=== PATIENT | female | born 1945 | race Caucasian/White ===

== ENCOUNTER 2017-05-15 05:23 | Emergency (ER) | payer OTHER, MEDICARE ==
[~2017-05-15] VITALS: Ht 162.6 cm; Wt 113.0 kg
[2017-05-15 05:38] VITALS: BP 121/78; PULSE 75; RESP 18; TEMP 98.4; O2SAT 96
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
[2017-05-15 06:55] VITALS: BP 148/84; PULSE 84; RESP 16; O2SAT 95
[2017-05-15] MEDS ORDERED: ONDANSETRON HCL 4 MG/2 ML VIAL IM ONE (07:15)
[2017-05-15] MEDS ORDERED: KETOROLAC TROMETHAMINE 60 MG/2 ML (IM) VIAL IM ONE (07:15)
[2017-05-15] MEDS ORDERED: MORPHINE SULFATE 4 MG/ML INJ IM ONE (07:15)
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
--- NOTE | 2017-05-15 07:45 | PD ---
Physical Exam Date Seen by Provider: May 15, 2017 Time Seen by Provider: 07:00 Narrative Case was signed out to me by Dr. Guillory at 7 AM, please see Dr. Guillory's note for further details. Pain medications have been given to the patient and CAT scan is pending. Last [address] 05/15/17 0551 Signed Impressions: Service Date/Time: Monday, May 15, 2017 06:11 - CONCLUSION: 1. There has been prior laminectomy at L4-L5 and L5-S1 with bilateral pedicular screws at L3-S1 bilaterally. The left L3 pedicular screw is fractured. 2. There is spinal canal stenosis and moderate neural foraminal narrowing bilaterally at L2-L3. 3. There is severe neural foraminal stenosis bilaterally at L5-S1 with grade 1 anterolisthesis. Rob Echeverria MD There is a left L3 particular screw fracture notable. The rest of the study I suspect is chronic, patient has history of chronic back pains. At this point, the CT finding was discussed with Dr. Fitzgerald of neurosurgery who states that patient needs pain control but does not need further treatment for this at this time. My plan would be to release the patient with follow-up to her own neurosurgeon. Continue using pain medication she already has for pain. Return for any worsening of pain or new symptoms as needed. The plan has discussed with her and she states understanding. Data Data Last Documented VS Vital Signs Date Time Temp Pulse Resp B/P (MAP) Pulse Ox O2 Delivery O2 Flow Rate FiO2 05/15/17 05:38 98.4 75 18 121/78 (92) [address] Lumb Spine W/O Contrast (05/15/17 05:51) Ondansetron Inj (Zofran Inj) (05/15/17 07:15) Morphine Inj (Morphine Inj) (05/15/17 07:15) Ketorolac Inj (Toradol Inj) (05/15/17 07:15) MDM Medical Record Reviewed: Yes Supervised Visit with IRISH: No Diagnosis Primary Impression: Injury to back Additional Impression: S/P lumbar laminectomy Disposition: 01 DISCHARGE HOME Condition: Stable SoonEvette becerra MD May 15, 2017 07:45
[2017-05-15 08:01] VITALS: BP 118/59
== END 2017-05-15 08:04 | disposition home or self-care (01) ==
LOC: PHED 05:23
DX: S39.92XA Unspecified injury of lower back, initial encounter (principal); M48.06 Spinal stenosis, lumbar region; V89.2XXA Person injured in unspecified motor-vehicle accident, traffic, initial encounter
CPT/HCPCS: 72131; 96372; 99284; J1885; J2270; J2405

== ENCOUNTER 2017-05-21 17:02 | Emergency (ER) | payer OTHER, BC ==
[2017-05-21 17:06] VITALS: BP 146/67; PULSE 72; RESP 20; TEMP 98.2; O2SAT 95
[2017-05-21] MEDS ORDERED: LANTUS2P SQ (17:29)
[2017-05-21] MEDS ORDERED: LISI-515 PO (17:29)
[2017-05-21] MEDS ORDERED: SIMV40TA PO (17:29)
[2017-05-21] MEDS ORDERED: GLIM2TAB PO (17:29)
[2017-05-21] MEDS ORDERED: METF1000 PO (17:29)
[2017-05-21] MEDS ORDERED: GABA300C5 PO (17:29)
[2017-05-21] MEDS ORDERED: KETOROLAC TROMETHAMINE 60 MG/2 ML (IM) VIAL IM ONE (17:30)
[2017-05-21] MEDS ORDERED: HYDR-3111 PO (17:30)
[2017-05-21] MEDS ORDERED: DIAZEPAM 5 MG TAB PO ONE (17:30)
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
[2017-05-21] MEDS ORDERED: DIAZ5 PO (18:31)
[2017-05-21 19:03] VITALS: BP 143/64; PULSE 69; RESP 17; TEMP 98.2; O2SAT 96
== END 2017-05-21 19:13 | disposition home or self-care (01) ==
LOC: PHED 17:02
DX: S39.012A Strain of muscle, fascia and tendon of lower back, initial encounter (principal); E11.9 Type 2 diabetes mellitus without complications; E78.00 Pure hypercholesterolemia, unspecified; I10 Essential (primary) hypertension; I25.10 Atherosclerotic heart disease of native coronary artery without angina pectoris; Z85.3 Personal history of malignant neoplasm of breast
CPT/HCPCS: 73502; 96372; 99284; J1885